=== PATIENT | male | born 1965 | race African-American/Black ===

== ENCOUNTER 2016-06-18 09:48 | Emergency (ER) | payer SELFPAY ==
[~2016-06-18] VITALS: Ht 180.3 cm; Wt 91.0 kg
[~2016-06-18 09:48] MED LIST: ALBU17I
[2016-06-18 09:54] VITALS: BP 163/107; PULSE 85; RESP 23; O2SAT 98
[2016-06-18 09:59] VITALS: O2SAT 98
[2016-06-18] MEDS: RESP: ALBUTEROL 2.5 MG/IPRATROPIUM 0.5 MG NEB (SCH) INH ×3 (10:00→10:13)
[2016-06-18] MEDS ORDERED: SODIUM CHLORIDE 0.9% FLUSH 10 ML FLUSH IVF PRN (10:00)
[2016-06-18] MEDS ORDERED: VENTAER INH (10:03)
[2016-06-18] MEDS ORDERED: ALBU0.08 NEB (10:03)
[2016-06-18] MEDS ORDERED: BUDE.5I NEB (10:03)
--- NOTE | 2016-06-18 10:04 | PD ---
HPI Chief Complaint: Respiratory Distress Time Seen by Provider: 09:55 Travel History International Travel<30 days: No Contact w/Intl Traveler<30days: No History of Present Illness HPI Patient is a 51-year-old male with history of asthma here with complaint of shortness of breath. Patient ran out of his albuterol 2 weeks ago. He typically has to use albuterol 3 times a day. States that since he's become increasingly short of breath, wheezy. Called EMS today. EMS noticed patient to be in mild respiratory distress with wheezing. Sats in the mid 90s. Given 125 mg Solu-Medrol and albuterol x2. Patient is already feeling improved. He has not had any chest pain, palpitations, fevers or chills. PFSH Past Medical History Asthma: Yes Blood Disorders: No Cancer: No Cardiovascular Problems: No Endocrine: No Gastrointestinal Disorders: Yes GERD: Yes Genitourinary: No Immune Disorder: No Musculoskeletal: No Neurologic: No Psychiatric: No Reproductive: No Respiratory: Yes Past Surgical History AICD: No Arteriovenous Shunt: No Insulin Pump: No Joint Replacement: No Pacemaker: No Social History Alcohol Use: No Tobacco Use: Yes (/ PPD) Substance Use: Yes Allergies-Medications (Allergen,Severity, Reaction): Coded Allergies: Seafood (Verified Allergy, Severe, Swelling, 06/18/16) Reported Meds & Prescriptions Reported Meds & Active Scripts Active Reported Proventil Mdi (Albuterol Sulfate) 17 Gm Aero Review of Systems Except as stated in HPI: all other systems reviewed are Neg Physical Exam Narrative GENERAL: Well-appearing male in no acute respiratory distress SKIN: Focused skin assessment warm/dry. HEAD: Normocephalic. EYES: No scleral icterus. No injection or drainage. ENT: Mucous membranes pink and moist. NECK: Supple CARDIOVASCULAR: Regular rate and rhythm. No murmur appreciated. RESPIRATORY: No accessory muscle use. Expiratory wheezing GASTROINTESTINAL: Abdomen soft, non-tender, nondistended. MUSCULOSKELETAL: No obvious deformities. No edema. NEUROLOGICAL: Awake and alert.Normal speech. PSYCHIATRIC: Appropriate mood and affect; insight and judgment normal. Data Data Orders Iv Access Insert/Monitor (06/18/16 09:55) Electrocardiogram (06/18/16 09:55) Ecg Monitoring (06/18/16 09:55) Oximetry (06/18/16 09:55) Sodium Chloride 0.9% Flush (Ns Flush) (06/18/16 10:00) Duoneb Q15min X 3 Doses (06/18/16 10:00) MDM Medical Decision Making Medical Screen Exam Complete: Yes Emergency Medical Condition: Yes Medical Record Reviewed: Yes Differential Diagnosis 51-year-old male with history of asthma here with shortness of breath after running out of his albuterol which he uses 3 times a day. Differential includes asthma exacerbation, viral syndrome, pneumonia, medication nonadherence Narrative Course Patient placed on monitor, IV established per EMS. A twelve-lead EKG shows sinus rhythm without notable ST abnormalities, normal intervals. Patient given DuoNeb with improvement of his symptoms. Based on his symptomatology he uses a rescue inhaler 3 times a day and needs better control. Financial counselor came to discuss options for outpatient follow-up and potential insurance with patient. He will be discharged home with albuterol nebulizer which is more affordable and Pulmicort. I think patient's symptoms are due to his underlying recent medical nonadherence. Overall his symptoms are minimal and I do not feel that he warrants oral glucocorticoids for home. Diagnosis Primary Impression: Asthma exacerbation Referrals: Faith Liang MD call for appointment [facility] Additional Instructions: Nebulizers as prescribed. Follow-up with primary care to establish care. Med/Other Pt SpecificInfo: Prescription(s) given Scripts Albuterol 18 GM Inh (Ventolin Hfa 18 GM Inh)90 Mcg/Act Aer2 Puff INH Q4H PRN ( SHORTNESS OF BREATH) #1 INHALER Ref 0 Prov:Юлия Corrales MD 06/18/16 Budesonide Neb (Pulmicort Respules)0.5 Mg/2 Ml Neb0.5 Mg NEB Q12HR NEB #60 NEBULE Ref 0 Prov:Юлия Corrales MD 06/18/16 Albuterol Neb 2.5 Mg/3 Ml Neb2.5 Mg NEB Q4HR NEB #60 NEBULE Ref 0 While awake Prov:Юлия Corrales MD 06/18/16 Disposition: 01 DISCHARGE HOME Condition: Stable Юлия Corrales MD Jun 18, 2016 10:04
[2016-06-18 10:46] VITALS: BP 159/98; PULSE 87; RESP 18; O2SAT 98
--- NOTE | 2016-06-18 12:25 | EKG ---
Date Performed: 06/18/2016 Time Performed: 09:57:34 PTAGE: 51 years EKG: Sinus rhythm NORMAL ECG PREVIOUS TRACING : 05/27/2006 09.03 DOCTOR: Alton Freeman Interpretating Date/Time 06/18/2016 12:23:59
== END 2016-06-18 11:08 | disposition home or self-care (01) ==
LOC: NEPC 09:48
DX: J45.901 Unspecified asthma with (acute) exacerbation (principal); F17.200 Nicotine dependence, unspecified, uncomplicated; Z87.09 Personal history of other diseases of the respiratory system; Z87.19 Personal history of other diseases of the digestive system
CPT/HCPCS: 93005; 94640; 94664